=== PATIENT | male | born 1990 | race Caucasian/White ===

== ENCOUNTER 2020-12-23 21:05 | Emergency (ER) | payer MEDICAID ==
[~2020-12-23] VITALS: Ht 175.3 cm; Wt 102.1 kg
[2020-12-23 21:05] VITALS: BP 144/83
[2020-12-23] MEDS ORDERED: ALPRAZolam 0.5 MG TAB PO ONE (21:45)
== END 2020-12-24 02:34 | disposition home or self-care (01) ==
LOC: ER 21:05
DX: F41.9 Anxiety disorder, unspecified (principal); F42.8 Other obsessive-compulsive disorder